=== PATIENT | male | born 1975 | race Caucasian/White ===

== ENCOUNTER 2018-07-26 15:05 | Emergency (ER) | payer BC ==
[2018-07-26 15:20] VITALS: BP 147/104
--- NOTE | 2018-07-26 15:24 | UC ---
Throat Pain/Nasal John HPI - HPI Summary HPI Summary: 42-year-old male whose had a sore throat for the past 2 days, no fever or chills. - History of Current Complaint Chief Complaint: UCRespiratory Stated Complaint: SORE THROAT Time Seen by Provider: 07/26/18 15:23 Hx Obtained From: Patient Onset/Duration: Gradual Onset Severity: Mild Pain Intensity: 5 Cough: None Associated Signs & Symptoms: Positive: Negative - Allergies/Home Medications Allergies/Adverse Reactions: Allergies Allergy/AdvReac Type Severity Reaction Status Date / Time erythromycin base Allergy FORMS A Verified 07/26/18 15:17 TYPE OF FUNGUS AND CHEST/ARMS Home Medications: Home Medications Acetaminophen [Pain Relief Extra Strength] 1,000 mg PO ONCE PRN 07/26/18 [ History Confirmed 07/26/18] Esomeprazole Magnesium [Nexium] 20 mg PO DAILY 07/26/18 [History Confirmed 07/26] PMH/Surg Hx/FS Hx/Imm Hx Previously Healthy: Yes Other History Of: Negative For: Anticoagulant Therapy - Surgical History Surgical History: None Surgery Procedure, Year, and Place: DENIES - Family History Known Family History: Positive: Non-Contributory - Social History Alcohol Use: Occasionally Substance Use Type: None Smoking Status (MU): Never Smoked Tobacco Review of Systems All Other Systems Reviewed And Are Negative: Yes ENT: Positive: Sore Throat Is Patient Immunocompromised?: No Physical Exam Triage Information Reviewed: Yes Appearance: Well-Appearing, No Pain Distress, Well-Nourished Vital Signs: Initial Vital Signs Temp 97.5 F 07/26/18 15:14 Pulse 64 07/26/18 15:14 Resp 18 07/26/18 15:14 BP 147/104 07/26/18 15:14 Pulse Ox 99 07/26/18 15:14 Vital Signs Reviewed: Yes Eyes: Positive: Conjunctiva Clear ENT: Positive: Pharyngeal erythema - Very minimal pharyngeal erythema., TMs normal, Tonsillar swelling - Minimal tonsillar swelling the left greater than the right however uvula is midline., Uvula midline. Negative: Tonsillar exudate , Trismus, Muffled voice, Hoarse voice Neck: Positive: Supple, Nontender, No Lymphadenopathy Respiratory: Positive: Lungs clear, Normal breath sounds, No respiratory distress, No accessory muscle use Cardiovascular: Positive: RRR, No Murmur, Pulses Normal, Brisk Capillary Refill Musculoskeletal Exam: Normal Neurological Exam: Normal Psychological Exam: Normal Skin Exam: Normal Throat Pain/Nasal Course/Dx - Course Course Of Treatment: Rapid strep test was negative. - Differential Dx/Diagnosis Provider Diagnosis: Pharyngitis Discharge - Sign-Out/Discharge Documenting (check all that apply): Patient Departure All imaging exams completed and their final reports reviewed: No Studies - Discharge Plan Condition: Fair Disposition: HOME Patient Education Materials: Pharyngitis (ED) Referrals: Rolan Stephens MD [Primary Care Provider] - Additional Instructions: Increase fluids, warm salt water gargles, throat lozenges, Motrin as needed for pain or fever. Follow-up with your primary care provider if no improvement in 3 or 4 days. - Billing Disposition and Condition Condition: FAIR Disposition: Home
== END 2018-07-26 15:52 | disposition home or self-care (01) ==
LOC: UCEAST 15:05
DX: J02.9 Acute pharyngitis, unspecified (principal); Z88.1 Allergy status to other antibiotic agents
CPT/HCPCS: 87651; 99211; G0463